=== PATIENT | female | born 1955 | race Caucasian/White ===

== ENCOUNTER 2022-04-23 02:01 | Inpatient (IN) | payer OTHER ==
[2022-04-23] MEDS ORDERED: niCARdipine 25 MG/10 ML VIAL ONE ×3 (02:45→08:12)
[2022-04-23 04:01] LABS: #Basophils 0.1 thou/uL (0.0-0.2); #Lymphocytes 3.4 thou/uL (1.20-3.40); #Monocytes 1.2 thou/uL (0.11-0.59); #Neutrophils 10.7 thou/uL (1.40-6.50); %Basophils 0.3 % (0.0-1.0); %Eosinophils 0.3 % (0.0-10.0); %Lymphocytes 22.1 % (21.0-51.0); %Neutrophils 69.3 % (42.0-75.0); Hemoglobin 13.7 g/dL (12.0-16.0); Mean Corpuscular HGB CONC 32.7 g/dL (32.0-36.0); Mean Corpuscular Hemoglobin 25.5 pg (27.0-31.0); Mean Corpuscular Volume 77.8 fl (78.0-98.0); Mean Platelet Volume 10.1 fL (7.4-10.4); Platelet Count 266 10x3/uL (130-400); RBC Distribution Width 14.4 % (11.5-14.5); Red Blood Cell (RBC) Count 5.37 mill/uL (4.20-5.40); White Blood Cell (WBC) Count 15.4 10x3/uL (4.8-10.8)
[2022-04-23 04:22] LABS: ALT (SGPT) 22 U/L (8-55); AST (SGOT) 25 U/L (5-34); Albumin 4.2 g/dL (3.4-4.8); Alkaline Phosphatase 42 U/L (40-110); Anion Gap 13 mmol/L (10-20); BUN (Urea Nitrogen) 13 mg/dL (9.8-20.1); Bilirubin, Total 0.7 mg/dL (0.2-1.2); Calc. Creatinine Clearance 0 mL/min (70-130); Calcium 10.8 mg/dL (7.8-10.44); Carbon Dioxide 27 mmol/L (23-31); Chloride 99 mmol/L (98-107); Estimated GFR 90; Globulin 3.6 g/dL (2.4-3.5); Glucose 163 mg/dL (80-115); Potassium 3.2 mmol/L (3.5-5.1); Protein, Total 7.8 g/dL (5.8-8.1); Sodium 136 mmol/L (136-145)
[2022-04-23 05:26] VITALS: BMI 29.0
[2022-04-23] MEDS ORDERED: Acetaminophen 325 MG TAB PO PRN (05:31)
[2022-04-23] MEDS ORDERED: Ondansetron ODT 4 MG TAB PO PRN (05:31)
[2022-04-23] MEDS ORDERED: Ondansetron PF 4 MG/2 ML Vial IVP PRN (05:31)
[2022-04-23] MEDS ORDERED: Acetaminophen 650 MG Suppository PR PRN (05:31)
[2022-04-23] MEDS ORDERED: hydrALAZINE 20 MG/ML VIAL SLOW IVP PRN (05:32)
[2022-04-23] MEDS ORDERED: niCARdipine 25 MG in Sodium Chloride 0.9% 250 ML 250 ML IVPB SCH (05:45)
[2022-04-23 06:22] LABS: Hemoglobin A1c 6.6 % (4.0-6.0)
[2022-04-23] MEDS ORDERED: HumaLOG 300 UNITS/3 ML VIAL SC PRN (06:36)
[2022-04-23] MEDS ORDERED: Dextrose 50% Abboject 50 ML SYRINGE SLOW IVP PRN (06:36)
[2022-04-23] MEDS ORDERED: Dextrose 5% in Water 1,000 ML IV PRN (06:36)
[2022-04-23] MEDS ORDERED: HumaLOG 300 UNITS/3 ML VIAL ONE (08:20)
[2022-04-23] MEDS ORDERED: Aspirin Chewable 81 MG TAB ONE (08:20)
[2022-04-23] MEDS ORDERED: Enoxaparin Sodium 40 MG/0.4 ML SYRINGE ONE (08:20)
[2022-04-23] MEDS ORDERED: Amlodipine 5 MG TAB ONE (08:20)
[2022-04-23] MEDS: Enoxaparin Sodium 40 MG/0.4 ML SYRINGE SC SCH (08:27)
[2022-04-23] MEDS: HumaLOG 300 UNITS/3 ML VIAL SC PRN ×2 (08:27→18:16)
[2022-04-23] MEDS: Aspirin 81 mg Enteric Coated Tablet PO SCH (08:27)
[2022-04-23] MEDS ORDERED: Hydrochlorothiazide 25 MG TAB PO SCH (09:00)
[2022-04-23] MEDS ORDERED: Amlodipine 10 MG TAB PO SCH (09:00)
[2022-04-23] MEDS ORDERED: cloNIDine 0.1 MG TAB PO SCH (09:30)
[2022-04-23] MEDS ORDERED: hydrALAZINE 25 MG TAB PO SCH (15:30)
[2022-04-23] MEDS: Ergocalciferol 1.25 MG(50,000 UNITS) CAP PO SCH (16:21)
[2022-04-23] MEDS ORDERED: NIFEdipine XL 30 MG TAB PO SCH (16:30)
[2022-04-23] MEDS: hydrALAZINE 25 MG TAB PO SCH (20:29)
[2022-04-23] MEDS: cloNIDine 0.1 MG TAB PO SCH (20:30)
[2022-04-23] MEDS: Rosuvastatin 20 MG TAB PO SCH (20:30)
[2022-04-23] MEDS: Metoprolol Tartrate 100 MG TAB PO SCH (20:30)
[2022-04-24 05:28] LABS: Anion Gap 13 mmol/L (10-20); BUN (Urea Nitrogen) 14 mg/dL (9.8-20.1); Calc. Creatinine Clearance 114 mL/min (70-130); Calcium 11.1 mg/dL (7.8-10.44); Carbon Dioxide 28 mmol/L (23-31); Cardiac Risk 2.8 (Less than 4.5); Chloride 99 mmol/L (98-107); Cholesterol 129 mg/dl (< 200 Desired); Estimated GFR 98; Glucose 153 mg/dL (80-115); HDL Cholesterol 46 mg/dL (>60 Neg Risk); LDL Cholesterol, Calculated 57 mg/dL; Potassium 2.7 mmol/L (3.5-5.1); Sodium 137 mmol/L (136-145); Triglycerides 128 mg/dL (Less than 150)
[2022-04-24 05:38] LABS: #Eosinphils 0.2 thou/uL (0.0-0.7); #Lymphocytes 2.6 thou/uL (1.20-3.40); #Neutrophils 5.9 thou/uL (1.40-6.50); %Basophils 0.4 % (0.0-1.0); %Eosinophils 1.6 % (0.0-10.0); %Monocytes 10.2 % (0.0-10.0); %Neutrophils 60.8 % (42.0-75.0); Hemoglobin 12.9 g/dL (12.0-16.0); Mean Corpuscular HGB CONC 32.9 g/dL (32.0-36.0); Mean Corpuscular Hemoglobin 26.3 pg (27.0-31.0); Mean Corpuscular Volume 79.9 fl (78.0-98.0); Mean Platelet Volume 10.6 fL (7.4-10.4); Platelet Count 203 10x3/uL (130-400); RBC Distribution Width 14.7 % (11.5-14.5); White Blood Cell (WBC) Count 9.6 10x3/uL (4.8-10.8)
[2022-04-24] MEDS: HumaLOG 300 UNITS/3 ML VIAL SC PRN ×3 (06:12→16:53)
[2022-04-24] MEDS ORDERED: Electrolyte Replacement Protocol 1 EACH FS SCH (08:30)
[2022-04-24] MEDS ORDERED: Electrolyte Replacement Protocol FS PRN (09:00)
[2022-04-24 09:27] LABS: Magnesium 1.6 mg/dL (1.6-2.6); Phosphorus 2.4 mg/dL (2.3-4.7)
[2022-04-24] MEDS: Potassium Chloride 20 MEQ TAB PO SCH ×2 (09:55→13:10)
[2022-04-24] MEDS: cloNIDine 0.1 MG TAB PO SCH (09:55)
[2022-04-24] MEDS: Ezetimibe 10 MG TAB PO SCH (09:56)
[2022-04-24] MEDS: Metoprolol Tartrate 100 MG TAB PO SCH ×2 (09:56→21:10)
[2022-04-24] MEDS: Escitalopram Oxalate 20 mg Tablet PO SCH (09:56)
[2022-04-24] MEDS: hydrALAZINE 25 MG TAB PO SCH ×3 (09:57→21:09)
[2022-04-24] MEDS: Fenofibrate Nanocrystallized 145 MG TAB PO SCH (09:58)
[2022-04-24] MEDS: NIFEdipine XL 60 MG TAB PO SCH (09:58)
[2022-04-24] MEDS: Enoxaparin Sodium 40 MG/0.4 ML SYRINGE SC SCH (09:58)
[2022-04-24] MEDS: Aspirin 81 mg Enteric Coated Tablet PO SCH (09:58)
[2022-04-24] MEDS ORDERED: Magnesium 2 GM/50 ML(in water) 2 GM in Premix Bag 1 BAG IVPB SCH (10:15)
[2022-04-24] MEDS ORDERED: Polyethylene Glycol 3350 17 GM Packet PO PRN (10:47)
[2022-04-24 12:31] LABS: Bacteria/HPF None Seen HPF (None Seen); Bilirubin Negative (Negative); Blood, Urine Negative (Negative); Clarity Clear (Clear); Glucose, Urine (Dipstick) 500 mg/dL (Negative); Ketone, Urine Negative (Negative); Leukocyte Negative Leu/uL (Negative); Nitrite Negative (Negative); Protein, Urine (Dipstick) 30 mg/dL (Neg-Trace); RBC/HPF 0-3 HPF (0-3); Specific Gravity, Urine 1.019 (1.002-1.036); Squamous Epithelial 0-3 HPF (0-3); Urobilinogen Normal mg/dL (Less than 2); WBC/HPF 0-3 HPF (0-3)
[2022-04-24 16:53] LABS: Potassium 4.1 mmol/L (3.5-5.1)
[2022-04-24] MEDS ORDERED: Scopolamine 1.5 mg/72 hour Patch TD SCH (19:30)
[2022-04-24] MEDS: Rosuvastatin 20 MG TAB PO SCH (21:09)
[2022-04-24] MEDS: cloNIDine 0.1 MG TAB PO PRN (21:10)
[2022-04-25] MEDS: cloNIDine 0.1 MG TAB PO PRN ×2 (01:07→05:17)
[2022-04-25] MEDS: HumaLOG 300 UNITS/3 ML VIAL SC PRN ×3 (05:18→17:36)
[2022-04-25 05:29] LABS: Anion Gap 14 mmol/L (10-20); BUN (Urea Nitrogen) 22 mg/dL (9.8-20.1); Calc. Creatinine Clearance 86 mL/min (70-130); Calcium 11.3 mg/dL (7.8-10.44); Carbon Dioxide 25 mmol/L (23-31); Chloride 99 mmol/L (98-107); Estimated GFR 75; Glucose 374 mg/dL (80-115); Potassium 3.6 mmol/L (3.5-5.1); Sodium 134 mmol/L (136-145)
[2022-04-25] MEDS ORDERED: HumaLOG 300 UNITS/3 ML VIAL SC PRN (06:59)
[2022-04-25] MEDS ORDERED: Hydrochlorothiazide 25 MG TAB PO SCH (09:00)
[2022-04-25] MEDS: Insulin Glargine 30 UNITS/0.3 ML VIAL SC SCH ×3 (09:51→21:09)
[2022-04-25] MEDS: Metoprolol Tartrate 100 MG TAB PO SCH ×2 (10:11→21:06)
[2022-04-25] MEDS: Enoxaparin Sodium 40 MG/0.4 ML SYRINGE SC SCH (10:11)
[2022-04-25] MEDS: hydrALAZINE 25 MG TAB PO SCH ×3 (10:11→21:06)
[2022-04-25] MEDS: Ezetimibe 10 MG TAB PO SCH (10:12)
[2022-04-25] MEDS: Aspirin 81 mg Enteric Coated Tablet PO SCH (10:12)
[2022-04-25] MEDS: NIFEdipine XL 60 MG TAB PO SCH (10:13)
[2022-04-25] MEDS: Fenofibrate Nanocrystallized 145 MG TAB PO SCH (10:13)
[2022-04-25] MEDS: Escitalopram Oxalate 20 mg Tablet PO SCH (10:13)
[2022-04-25] MEDS ORDERED: NIFEdipine XL 90 MG TAB PO SCH (12:00)
[2022-04-25] MEDS ORDERED: cloNIDine 0.1 MG TAB PO SCH (12:30)
[2022-04-25] MEDS: Rosuvastatin 20 MG TAB PO SCH (21:06)
[2022-04-25] MEDS: cloNIDine 0.1 MG TAB PO SCH (21:06)
[2022-04-25] MEDS: Ramipril 5 MG CAP PO SCH (21:07)
[2022-04-26] MEDS ORDERED: hydrALAZINE 20 MG/ML VIAL SLOW IVP SCH (04:45)
[2022-04-26 06:13] LABS: Anion Gap 12 mmol/L (10-20); BUN (Urea Nitrogen) 21 mg/dL (9.8-20.1); Calc. Creatinine Clearance 104 mL/min (70-130); Carbon Dioxide 27 mmol/L (23-31); Chloride 100 mmol/L (98-107); Estimated GFR 87; Glucose 193 mg/dL (80-115); Magnesium 1.5 mg/dL (1.6-2.6); Potassium 3.3 mmol/L (3.5-5.1); Sodium 136 mmol/L (136-145)
[2022-04-26] MEDS: HumaLOG 300 UNITS/3 ML VIAL SC PRN ×2 (06:23→17:20)
[2022-04-26] MEDS ORDERED: cloNIDine 0.1 MG TAB PO PRN (07:09)
[2022-04-26] MEDS ORDERED: Potassium Chloride 20 MEQ TAB PO SCH (08:00)
[2022-04-26] MEDS ORDERED: Magnesium 2 GM/50 ML(in water) 2 GM in Premix Bag 1 BAG IVPB SCH (08:00)
[2022-04-26] MEDS: Insulin Glargine 30 UNITS/0.3 ML VIAL SC SCH ×2 (08:54→20:55)
[2022-04-26] MEDS: Aspirin 81 mg Enteric Coated Tablet PO SCH (08:54)
[2022-04-26] MEDS: Fenofibrate Nanocrystallized 145 MG TAB PO SCH (08:55)
[2022-04-26] MEDS: Enoxaparin Sodium 40 MG/0.4 ML SYRINGE SC SCH (08:55)
[2022-04-26] MEDS: Ezetimibe 10 MG TAB PO SCH (08:55)
[2022-04-26] MEDS: cloNIDine 0.1 MG TAB PO SCH ×2 (08:55→20:54)
[2022-04-26] MEDS: hydrALAZINE 25 MG TAB PO SCH ×3 (08:56→20:55)
[2022-04-26] MEDS: Torsemide 20 MG TAB PO SCH (08:56)
[2022-04-26] MEDS: Ramipril 5 MG CAP PO SCH ×2 (08:56→20:56)
[2022-04-26] MEDS: Metoprolol Tartrate 100 MG TAB PO SCH ×2 (08:58→20:55)
[2022-04-26] MEDS ORDERED: NIFEdipine XL 90 MG TAB PO SCH (09:00)
[2022-04-26 14:30] LABS: Potassium 4.4 mmol/L (3.5-5.1)
[2022-04-26] MEDS: Rosuvastatin 20 MG TAB PO SCH (20:56)
[2022-04-27 05:45] LABS: #Eosinphils 0.2 thou/uL (0.0-0.7); #Lymphocytes 2.3 thou/uL (1.20-3.40); #Monocytes 0.6 thou/uL (0.11-0.59); #Neutrophils 3.7 thou/uL (1.40-6.50); %Basophils 0.4 % (0.0-1.0); %Eosinophils 2.9 % (0.0-10.0); %Monocytes 8.7 % (0.0-10.0); %Neutrophils 53.9 % (42.0-75.0); Hemoglobin 11.5 g/dL (12.0-16.0); Mean Corpuscular HGB CONC 32.8 g/dL (32.0-36.0); Mean Corpuscular Hemoglobin 25.8 pg (27.0-31.0); Mean Corpuscular Volume 78.7 fl (78.0-98.0); Mean Platelet Volume 10.3 fL (7.4-10.4); Platelet Count 220 10x3/uL (130-400); RBC Distribution Width 14.2 % (11.5-14.5); Red Blood Cell (RBC) Count 4.46 mill/uL (4.20-5.40); White Blood Cell (WBC) Count 6.8 10x3/uL (4.8-10.8)
[2022-04-27 06:06] LABS: Anion Gap 13 mmol/L (10-20); BUN (Urea Nitrogen) 23 mg/dL (9.8-20.1); Calc. Creatinine Clearance 101 mL/min (70-130); Carbon Dioxide 26 mmol/L (23-31); Chloride 100 mmol/L (98-107); Estimated GFR 84; Glucose 179 mg/dL (80-115); Magnesium 1.6 mg/dL (1.6-2.6); Potassium 3.7 mmol/L (3.5-5.1); Sodium 135 mmol/L (136-145)
[2022-04-27] MEDS ORDERED: Magnesium 2 GM/50 ML(in water) 2 GM in Premix Bag 1 BAG IVPB SCH (08:00)
[2022-04-27] MEDS: cloNIDine 0.1 MG TAB PO SCH ×2 (08:20→20:40)
[2022-04-27] MEDS: Aspirin 81 mg Enteric Coated Tablet PO SCH (08:20)
[2022-04-27] MEDS: Ramipril 5 MG CAP PO SCH ×2 (08:21→20:39)
[2022-04-27] MEDS: hydrALAZINE 25 MG TAB PO SCH ×3 (08:22→20:39)
[2022-04-27] MEDS: Metoprolol Tartrate 100 MG TAB PO SCH ×2 (08:23→20:40)
[2022-04-27] MEDS: Torsemide 20 MG TAB PO SCH (08:23)
[2022-04-27] MEDS: Fenofibrate Nanocrystallized 145 MG TAB PO SCH (08:23)
[2022-04-27] MEDS: Ezetimibe 10 MG TAB PO SCH (08:23)
[2022-04-27] MEDS: Insulin Glargine 30 UNITS/0.3 ML VIAL SC SCH ×2 (08:24→21:43)
[2022-04-27] MEDS: Enoxaparin Sodium 40 MG/0.4 ML SYRINGE SC SCH (08:26)
[2022-04-27] MEDS: HumaLOG 300 UNITS/3 ML VIAL SC PRN (11:32)
[2022-04-27] MEDS: Ergocalciferol 1.25 MG(50,000 UNITS) CAP PO SCH (14:46)
[2022-04-27] MEDS: Rosuvastatin 20 MG TAB PO SCH (20:39)
[2022-04-28 05:35] LABS: Anion Gap 12 mmol/L (10-20); BUN (Urea Nitrogen) 22 mg/dL (9.8-20.1); Calc. Creatinine Clearance 100 mL/min (70-130); Calcium 10.6 mg/dL (7.8-10.44); Carbon Dioxide 26 mmol/L (23-31); Chloride 100 mmol/L (98-107); Estimated GFR 83; Glucose 129 mg/dL (80-115); Magnesium 1.6 mg/dL (1.6-2.6); Potassium 3.5 mmol/L (3.5-5.1); Sodium 134 mmol/L (136-145)
[2022-04-28] MEDS: cloNIDine 0.1 MG TAB PO SCH ×2 (05:55→14:01)
[2022-04-28] MEDS ORDERED: Magnesium 2 GM/50 ML(in water) 2 GM in Premix Bag 1 BAG IVPB SCH (08:00)
[2022-04-28] MEDS ORDERED: Potassium Chloride 20 MEQ TAB PO SCH (08:00)
[2022-04-28] MEDS: Insulin Glargine 30 UNITS/0.3 ML VIAL SC SCH (09:19)
[2022-04-28] MEDS: Fenofibrate Nanocrystallized 145 MG TAB PO SCH (09:20)
[2022-04-28] MEDS: hydrALAZINE 25 MG TAB PO SCH ×2 (09:20→14:01)
[2022-04-28] MEDS: Aspirin 81 mg Enteric Coated Tablet PO SCH (09:20)
[2022-04-28] MEDS: Ramipril 5 MG CAP PO SCH (09:20)
[2022-04-28] MEDS: Torsemide 20 MG TAB PO SCH (09:20)
[2022-04-28] MEDS: Ezetimibe 10 MG TAB PO SCH (09:20)
[2022-04-28] MEDS: Metoprolol Tartrate 100 MG TAB PO SCH (09:21)
[2022-04-28] MEDS: Enoxaparin Sodium 40 MG/0.4 ML SYRINGE SC SCH (09:21)
[2022-04-28 12:50] VITALS: BP 133/77; TEMP 97.4
[2022-04-28] MEDS: HumaLOG 300 UNITS/3 ML VIAL SC PRN (12:53)
== END 2022-04-28 17:35 | disposition home or self-care (01) | DRG 305 ==
LOC: ERS 02:01 → ERHOLD 04:01 → 2NO 10:57 → NEURO 04-25 14:42
PROVIDERS: ADMIT Internal Medicine; ATTEND Internal Medicine
DX: I16.1 Hypertensive emergency (principal); E87.1 Hypo-osmolality and hyponatremia; E87.20 Acidosis, unspecified; J44.9 Chronic obstructive pulmonary disease, unspecified; E87.6 Hypokalemia; E21.0 Primary hyperparathyroidism; E66.9 Obesity, unspecified; N18.2 Chronic kidney disease, stage 2 (mild); I12.9 Hypertensive chronic kidney disease with stage 1 through stage 4 chronic kidney disease, or unspecified chronic kidney disease; R29.6 Repeated falls; Z90.89 Acquired absence of other organs; Z91.81 History of falling; Z68.30 Body mass index [BMI] 30.0-30.9, adult; Z90.710 Acquired absence of both cervix and uterus; Z79.899 Other long term (current) drug therapy; Z79.82 Long term (current) use of aspirin
CPT/HCPCS: 36415; 36416; 70551; 71045; 80048; 80053; 80061; 81001; 83036; 83735; 84100; 84484; 85025; 93306; 96374; J0360; J1650; J1815; J3475